=== PATIENT | male | born 1960 | race Caucasian/White ===

== ENCOUNTER 2023-05-08 22:13 | Emergency (ER) | payer MEDICAID, MEDICARE, SELFPAY ==
[~2023-05-08] VITALS: Ht 172.7 cm; Wt 74.0 kg
[2023-05-08] MEDS ORDERED: OLANZapine INTRAMUSCULAR 10MG VIAL IM ONE (22:15)
[2023-05-08] MEDS ORDERED: LORazepam 2 MG/ML 1ML VIAL IM ONE (22:15)
[2023-05-08] MEDS ORDERED: LORazepam 2 MG/ML 1ML VIAL As Ordered ONE (22:18)
[2023-05-08 23:17] LABS: RSV AMPLIFICATION NEGATIVE (NEGATIVE)
[2023-05-08 23:29] LABS: SALICYLATE LEVEL < 3.0 MG/DL (<30)
[2023-05-08 23:33] LABS: ALBUMIN 3.4 G/DL (3.2-5.2); ALKALINE PHOSPHATASE 99 U/L (46-116); AST/SGOT 77 U/L (<34); BILIRUBIN,DIRECT < 0.1 MG/DL (<0.4); BILIRUBIN,TOTAL 0.3 MG/DL (0.3-1.2); CARBON DIOXIDE LEVEL 20 MMOL/L (20-31); CHLORIDE LEVEL 113 MMOL/L (98-107); GLUCOSE, FASTING 76 MG/DL (74-106); SODIUM LEVEL 145 MMOL/L (136-145); THYROID STIMULATING HORMONE 1.794 uIU/ML (0.55-4.78); TOTAL PROTEIN 5.9 G/DL (5.7-8.2)
[2023-05-08 23:34] LABS: BLOOD UREA NITROGEN 18 MG/DL (9-23); POTASSIUM SERUM 4.8 MMOL/L (3.5-5.1)
[2023-05-08 23:59] LABS: ALT/SGPT 63 U/L (7.0-40); CALCIUM LEVEL 8.2 MG/DL (8.3-10.6); CPK CREATINE PHOSPHOKINASE 116 U/L (46-171); CREATININE FOR GFR 0.86 MG/DL (0.70-1.30); ETHYL ALCOHOL (ETHANOL) 0.317 % (0.000-0.010); GLOMERULAR FILTRATION RATE > 60.0 (>49)
[2023-05-09 00:24] LABS: BASO # 0.1 10^3/uL (0.0-0.2); BASO % 1.9 % (0.0-1.0); EOS # 0.4 10^3/uL (0.0-0.5); EOS % 5.9 % (0.0-3.0); HEMATOCRIT 36.3 % (42.0-52.0); HEMOGLOBIN 12.1 g/dl (13.5-17.5); LYMPH # 2.4 10^3/uL (1.5-5.0); LYMPH % 32.4 % (24.0-44.0); MEAN CORPUSCULAR HEMOGLOBIN 32.7 pg (27.0-33.0); MEAN CORPUSCULAR HGB CONC 33.3 g/dl (32.0-36.5); MEAN CORPUSCULAR VOLUME 98.1 fl (80.0-96.0); MONO # 0.5 10^3/uL (0.0-0.8); MONO % 7.2 % (2.0-8.0); NEUTROPHILS # 3.9 10^3/uL (1.5-8.5); NEUTROPHILS % 51.5 % (36.0-66.0); PLATELET COUNT, AUTOMATED 285 10^3/uL (150-450); WHITE BLOOD COUNT 7.5 10^3/uL (4.0-10.0)
[2023-05-09 02:16] LABS: AMPHETAMINES LEVEL URINE NEGATIVE (NEGATIVE); BARBITURATES URINE NEGATIVE (NEGATIVE); BENZODIAZEPINES URINE NEGATIVE (NEGATIVE); CANNABINOIDS URINE NEGATIVE (NEGATIVE); COCAINE METABOLITE URINE NEGATIVE (NEGATIVE); METHADONE URINE NEGATIVE (NEGATIVE); OPIATES URINE NEGATIVE (NEGATIVE); PHENCYCLIDINE URINE NEGATIVE (NEGATIVE)
[2023-05-09] MEDS ORDERED: D5W/0.45% SODIUM CHLORIDE 1,000 ML IV SCH (03:55)
[2023-05-09 11:52] VITALS: BP 180/89; TEMP 97.6; O2SAT 93
== END 2023-05-09 11:51 | disposition home or self-care (01) ==
LOC: M ED 22:13
DX: F10.129 Alcohol abuse with intoxication, unspecified (principal); R45.851 Suicidal ideations
CPT/HCPCS: 80048; 80076; 80143; 80307; 82077; 82550; 84443; 85025; 87631; 93005; 93041; 94760; 96365; 96366; 96372; 99285; J2060; S0166